=== PATIENT | male | born 1975 | race Caucasian/White ===

== ENCOUNTER 2017-03-29 09:45 | Emergency (ER) | payer SELFPAY ==
[~2017-03-29] VITALS: Ht 190.5 cm; Wt 88.9 kg
[2017-03-29 09:55] VITALS: BP_DIAS 79
[2017-03-29] MEDS ORDERED: KETOROLAC 30 MG/1 ML ONE (10:25)
[2017-03-29] MEDS ORDERED: KETOROLAC 30 MG/1 ML IM ONE (10:30)
[2017-03-29 10:57] VITALS: BP_SYST 113
== END 2017-03-29 10:59 | disposition home or self-care (01) ==
LOC: ED 10:12
DX: M10.072 Idiopathic gout, left ankle and foot (principal)
CPT/HCPCS: 96372; 99283; J1885